=== PATIENT | female | born 2000 | race Two or more races ===

== ENCOUNTER → 2021-07-17 | Outpatient (CLI) | payer MEDICAID | END | disposition home or self-care (01) | LOC: LAB 10:00 | PROVIDERS: ATTEND Obstetrics & Gynecology | DX: N91.2 Amenorrhea, unspecified (principal) | CPT/HCPCS: 36415; 84144; 84702 ==

== ENCOUNTER → 2021-09-03 | Outpatient (CLI) | payer MEDICAID ==
[2021-09-03 08:43] LABS: Basophils # (auto) 0 10 ^3/uL (0-0.2); Eosinophils # (auto) 0 10 ^3/uL (0-0.8); Hematocrit 35.4 % (36.0-46.0); Hemoglobin 11.8 g/dL (12.2-16.2); Lymphocytes # (auto) 1.4 10 ^3/uL (0.4-5.4); Monocytes # (auto) 0.3 10 ^3/uL (0-1.3)
[2021-09-03 08:45] LABS: Basophils % (auto) 0.5 % (0.0-2.0); Eosinophils % (auto) 0.8 % (0.0-7.0); Lymphocytes % (auto) 26.9 % (10.0-50.0); Mean Corpuscular Hemoglobin 26.2 pg (28.0-32.0); Mean Corpuscular Hgb Conc. 33.4 g/dL (32.0-36.0); Mean Corpuscular Volume 78.4 fL (80.0-100.0); Monocytes % (auto) 5.3 % (0.0-12.0); Neutrophils # (auto) 3.4 10 ^3/uL (1.6-8.6); Neutrophils % (auto) 66.5 % (37.0-80.0); Nucleated Red Blood Cells % 0.1 %; Red Blood Cells 4.51 10^6/uL (4.0-5.20); Red Cell Distribution Width 16.4 % (11.8-14.3); White Blood Cell 5.2 10^3/uL (4.4-10.8)
[2021-09-03 09:19] LABS: Alcohol, Urine < 3.0 mg/dL (0-10); Amphetamine Screen, Urine NEGATIVE (NEGATIVE); Barbiturate Scree,Urine NEGATIVE (NEGATIVE); Benzodiazephine Screen, Urine NEGATIVE (NEGATIVE); Cocaine Screen, Urine NEGATIVE (NEGATIVE); Opiate Scree,Urine NEGATIVE (NEGATIVE); Phencyclidine Screen, Urine NEGATIVE (NEGATIVE)
[2021-09-03 10:28] LABS: Cannabinoid Screen, Urine POSITIVE (NEGATIVE)
[2021-09-04 06:06] LABS: RPR Non Reactive (Non Reactive)
== END | disposition home or self-care (01) ==
LOC: LAB 08:13
PROVIDERS: ATTEND Obstetrics & Gynecology
DX: Z34.80 Encounter for supervision of other normal pregnancy, unspecified trimester (principal); Z31.430 Encounter of female for testing for genetic disease carrier status for procreative management; Z36.0 Encounter for antenatal screening for chromosomal anomalies
CPT/HCPCS: 36415; 80307; 83036; 84702; 85025; 86592; 86703; 86762; 86850; 86900; 86901; 87086

== ENCOUNTER → 2021-12-03 | Outpatient (CLI) | payer MEDICAID | END | disposition home or self-care (01) | LOC: LAB 08:58 | PROVIDERS: ATTEND Obstetrics & Gynecology | DX: Z34.80 Encounter for supervision of other normal pregnancy, unspecified trimester (principal); Z3A.00 Weeks of gestation of pregnancy not specified | CPT/HCPCS: 36415; 87340 ==

== ENCOUNTER → 2022-01-23 | Outpatient (CLI) | payer MEDICAID ==
[2022-01-23 10:36] LABS: Basophils # (auto) 0 10 ^3/uL (0-0.2); Eosinophils # (auto) 0.1 10 ^3/uL (0-0.8); Hemoglobin 9.3 g/dL (12.2-16.2); Lymphocytes # (auto) 1.6 10 ^3/uL (0.4-5.4); Mean Corpuscular Hemoglobin 22.5 pg (28.0-32.0); Monocytes # (auto) 0.5 10 ^3/uL (0-1.3); Nucleated Red Blood Cells % 0.1 %
[2022-01-23 10:37] LABS: Basophils % (auto) 0.3 % (0.0-2.0); Eosinophils % (auto) 0.8 % (0.0-7.0); Hematocrit 29.9 % (36.0-46.0); Lymphocytes % (auto) 24.8 % (10.0-50.0); Mean Corpuscular Hgb Conc. 31.2 g/dL (32.0-36.0); Mean Corpuscular Volume 72.3 fL (80.0-100.0); Monocytes % (auto) 6.9 % (0.0-12.0); Neutrophils # (auto) 4.5 10 ^3/uL (1.6-8.6); Neutrophils % (auto) 67.2 % (37.0-80.0); Red Blood Cells 4.13 10^6/uL (4.0-5.20); Red Cell Distribution Width 16.2 % (11.8-14.3); White Blood Cell 6.6 10^3/uL (4.4-10.8)
== END | disposition home or self-care (01) ==
LOC: LAB 10:04
PROVIDERS: ATTEND Obstetrics & Gynecology
DX: O99.810 Abnormal glucose complicating pregnancy (principal); Z3A.00 Weeks of gestation of pregnancy not specified
CPT/HCPCS: 36415; 82951; 83036; 85025

== ENCOUNTER → 2022-02-18 | Outpatient (CLI) | payer MEDICAID ==
[2022-02-18 11:01] LABS: Basophils # (auto) 0 10 ^3/uL (0-0.2); Eosinophils # (auto) 0 10 ^3/uL (0-0.8); Eosinophils % (auto) 0.5 % (0.0-7.0); Lymphocytes # (auto) 1.6 10 ^3/uL (0.4-5.4); Mean Corpuscular Volume 70.6 fL (80.0-100.0); Monocytes # (auto) 0.5 10 ^3/uL (0-1.3)
[2022-02-18 11:04] LABS: Basophils % (auto) 0.3 % (0.0-2.0); Hematocrit 30.1 % (36.0-46.0); Hemoglobin 9.4 g/dL (12.2-16.2); Lymphocytes % (auto) 18.5 % (10.0-50.0); Mean Corpuscular Hgb Conc. 31.1 g/dL (32.0-36.0); Monocytes % (auto) 5.9 % (0.0-12.0); Neutrophils # (auto) 6.7 10 ^3/uL (1.6-8.6); Neutrophils % (auto) 74.8 % (37.0-80.0); Nucleated Red Blood Cells % 0.1 %; Red Blood Cells 4.25 10^6/uL (4.0-5.20); White Blood Cell 8.9 10^3/uL (4.4-10.8)
[2022-02-19 06:06] LABS: RPR Non Reactive (Non Reactive)
== END | disposition home or self-care (01) ==
LOC: LAB 10:14
PROVIDERS: ATTEND Obstetrics & Gynecology
DX: Z34.80 Encounter for supervision of other normal pregnancy, unspecified trimester (principal); Z3A.00 Weeks of gestation of pregnancy not specified
CPT/HCPCS: 36415; 83036; 84112; 85025; 86592

== ENCOUNTER 2022-03-10 16:43 | Inpatient (IN) | payer MEDICAID ==
[~2022-03-10] VITALS: Ht 167.6 cm; Wt 58.5 kg
[2022-03-10] MEDS ORDERED: PHISODERM TOP SOLN 240ML BTL TOP PRN (17:15)
[2022-03-10] MEDS ORDERED: DERMOPLAST 60ML BOTTLE TOP PRN (17:15)
[2022-03-10] MEDS ORDERED: WITCH HAZEL-GLYCERIN PAD TOP PRN (17:15)
[2022-03-10] MEDS ORDERED: LIDOCAINE 2%HCL (LOCAL ANESTH.) INJ 10ml MDV IJ PRN (17:15)
[2022-03-10] MEDS ORDERED: BUTORPHANOL TARTRATE 2 MG/1 ML VIAL IV PRN ×2 (17:15)
[2022-03-10] MEDS ORDERED: LACTATED RINGER'S 1,000 ML IV SCH (17:15)
[2022-03-10] MEDS ORDERED: PROMETHAZINE HCL 25 MG/ML 1ML IV PRN (17:15)
[2022-03-10] MEDS ORDERED: TERBUTALINE SULFATE 1 MG/ML 1ML VIAL SC PRN (17:30)
[2022-03-10] MEDS ORDERED: LACT. RINGERS/OXYTOCIN 20UNITS 500 ML IV ONE ×2 (17:30→18:00)
[2022-03-10] MEDS ORDERED: LIDOCAINE 2%HCL (LOCAL ANESTH.) INJ 20ML MDV ONE (17:52)
[2022-03-10 18:30] LABS: Basophils # (auto) 0 10 ^3/uL (0-0.2); Basophils % (auto) 0.1 % (0.0-2.0); Eosinophils # (auto) 0 10 ^3/uL (0-0.8); Hematocrit 31.7 % (36.0-46.0); Hemoglobin 9.7 g/dL (12.2-16.2); Lymphocytes # (auto) 1.3 10 ^3/uL (0.4-5.4); Lymphocytes % (auto) 12.8 % (10.0-50.0); Mean Corpuscular Hemoglobin 21.5 pg (28.0-32.0); Mean Corpuscular Hgb Conc. 30.6 g/dL (32.0-36.0); Mean Corpuscular Volume 70.3 fL (80.0-100.0); Monocytes # (auto) 0.5 10 ^3/uL (0-1.3); Monocytes % (auto) 4.6 % (0.0-12.0); Neutrophils # (auto) 8.4 10 ^3/uL (1.6-8.6); Neutrophils % (auto) 82.5 % (37.0-80.0); Red Blood Cells 4.51 10^6/uL (4.0-5.20); Red Cell Distribution Width 17.8 % (11.8-14.3); White Blood Cell 10.2 10^3/uL (4.4-10.8)
[2022-03-10 18:34] LABS: Urine Bacteria MANY /hpf (None Seen); Urine Blood Negative /uL (Negative); Urine Mucus FEW (None Seen); Urine Specific Gravity 1.021 (1.001-1.035); Urine WBC 11 /hpf (0 - 5)
[2022-03-10 18:45] LABS: INR 0.94 (0.9-1.15); Partial Thromboplastin Time 25.1 sec (24.6-33.4)
[2022-03-10 18:59] LABS: Amphetamine Screen, Urine NEGATIVE (NEGATIVE); Barbiturate Scree,Urine NEGATIVE (NEGATIVE); Benzodiazephine Screen, Urine NEGATIVE (NEGATIVE); Cannabinoid Screen, Urine NEGATIVE (NEGATIVE); Cocaine Screen, Urine NEGATIVE (NEGATIVE)
[2022-03-10 19:02] LABS: Albumin 2.7 g/dL (3.4-5.0); BUN/Creatinine Ratio 12.7; Bilirubin, Total 0.6 mg/dL (0.2-1.0); Calcium 8.8 mg/dL (8.5-10.1); Potassium 3.8 mmol/L (3.5-5.1); Total Protein 7.5 g/dL (6.4-8.2)
[2022-03-10 19:05] LABS: Opiate Scree,Urine NEGATIVE (NEGATIVE); Phencyclidine Screen, Urine NEGATIVE (NEGATIVE)
[2022-03-10] MEDS ORDERED: IBUPROFEN 600 MG TAB PO ONE (19:19)
[2022-03-10] MEDS ORDERED: ONDANSETRON ODT 4 MG TAB PO PRN (20:15)
[2022-03-10] MEDS: DOCUSATE SOD 100 MG CAP PO SCH (22:00)
[2022-03-10] MEDS: ACETAMINOPHEN 325 MG TAB PO PRN (22:48)
[2022-03-10 22:58] VITALS: BP 130/79
[2022-03-11 03:17] VITALS: BP 105/57
[2022-03-11] MEDS: ACETAMINOPHEN 325 MG TAB PO PRN (06:49)
[2022-03-11 07:00] VITALS: BP 115/66
[2022-03-11 08:07] LABS: RPR Non Reactive (Non Reactive)
[2022-03-11 11:00] VITALS: BP 135/66
[2022-03-11] MEDS: IBUPROFEN 600 MG TAB PO PRN ×2 (13:39→19:06)
[2022-03-11 15:00] VITALS: BP 125/65
[2022-03-11 19:30] VITALS: BP 126/67
[2022-03-11] MEDS: DOCUSATE SOD 100 MG CAP PO SCH (22:08)
[2022-03-11 23:00] VITALS: BP 126/73
[2022-03-12] MEDS: ACETAMINOPHEN 325 MG TAB PO PRN ×2 (01:40→05:31)
[2022-03-12 03:00] VITALS: BP 110/62
[2022-03-12] MEDS: IBUPROFEN 600 MG TAB PO PRN ×2 (03:16→11:08)
[2022-03-12 07:30] VITALS: BP 110/62
[2022-03-12 11:10] VITALS: BP 124/68
[2022-03-12 13:19] VITALS: BP 124/72
== END 2022-03-12 13:19 | disposition home or self-care (01) | DRG 560 ==
LOC: LDRP 16:43 → OBSVTOIN 17:12 → LDRP 03-11 19:43 → UNDODISIN 03-12 13:19
PROVIDERS: ADMIT Obstetrics & Gynecology; ATTEND Obstetrics & Gynecology
PROC: 10E0XZZ Delivery of Products of Conception, External Approach (ICD-10-PCS; principal; 2022-03-10)
PROC: 0HQ9XZZ Repair Perineum Skin, External Approach (ICD-10-PCS; 2022-03-10)
DX: O70.0 First degree perineal laceration during delivery (principal); Z37.0 Single live birth; Z20.822 Contact with and (suspected) exposure to COVID-19; Z3A.38 38 weeks gestation of pregnancy
CPT/HCPCS: 36415; 59025; 59409; 80053; 80307; 81001; 81002; 85025; 85610; 85730; 86592; 86850; 86900; 86901; 87426; 94760; 96360; 96361; G0378; J2590